=== PATIENT | male | born 1995 | race African-American/Black ===

== ENCOUNTER 2023-11-23 11:55 | Emergency (ER) | payer BC, SELFPAY ==
[2023-11-23] VITALS (9 sets, daily range): BP systolic 148–208; BP diastolic 99–133; PULSE 75–94; RESP 13–18; TEMP 36.4; O2SAT 98–100
--- NOTE | ~2023-11-23 | XR_ITS ---
EXAMINATION: XR chest 2V 11/23/2023 12:53 INDICATION: Right chest pain PROCEDURE: 2 view chest COMPARISON: No prior studies for comparison. FINDINGS: The lungs are clear. The cardiomediastinal silhouette is within normal limits. There are no pleural effusions. There is no pneumothorax suspected. IMPRESSION: 1: NO ACUTE CARDIOPULMONARY DISEASE. Reviewed, dictated and finalized at location B.
--- NOTE | 2023-11-23 12:01 | ECG_ITS ---
Test Date: 2023-11-23 12:06:05 Measurements Intervals [place] Rate: 78 P: 29 NH: 154 QRS: 47 QRSD: 94 T: 74 QT: 356 QTc: 407 Interpretive Statements SINUS RHYTHM ANTERIOR INFARCT, AGE INDETERMINATE CONSIDER INFERIOR INFARCT, AGE INDETERMINATE BORDERLINE T WAVE ABNORMALITY- HIGH LATERAL LEADS BASELINE WANDER- I, II, III ABNORMAL ECG No previous ECG available for comparison Electronically Signed On 11-23-2023 12:55:19 CDT by Eulalio Ward D.O.
[2023-11-23 12:17] LABS: Basophils Absolute Auto 0.1 K/mm3 (0.0-0.1); Basophils Percent Auto 0.6 % (0.2-1.2); Eosinophils Absolute Auto 0.2 K/mm3 (0-0.3); Hematocrit 47.3 % (42.0-52.0); Hemoglobin 16.8 g/dL (14.0-18.0); Immature Granulocyte Absolute 0.06 K/mm3 (0.00-0.031); Immature Granulocyte Percent A 0.6 % (0-0.5); Lymphocytes Absolute Auto 2.97 K/mm3 (0.9-3.2); Lymphocytes Percent Auto 27.2 % (18.3-44.2); Mean Corpuscular HGB Conc 35.5 g/dl (32-36); Mean Corpuscular Hemoglobin 31.5 pg (26-34); Mean Corpuscular Volume 88.6 fl (80-100); Mean Platelet Volume 9.2 fl (7.4-10.4); Monocytes Absolute Auto 1.2 K/mm3 (0.1-0.6); Monocytes Percent Auto 10.6 % (2.6-8.5); Neutrophils Absolute Auto 6.4 K/mm3 (1.3-6.7); Platelet Count Result 329 k/mm3 (150-375); Red Blood Count 5.34 M/mm3 (4.6-6.20); Red Cell Distribution Width 12.2 % (11.5-14.5); White Blood Count 10.9 K/mm3 (4.5-10.0)
[2023-11-23 12:27] LABS: Alanine Aminotransferase 53 U/L (6-50); Albumin Level 4.6 g/dL (3.5-5.1); Alkaline Phosphatase 83 U/L (38-126); Anion Gap 13 mmol/L (4-12); Aspartate Amino Transferase 47 U/L (17-59); Blood Urea Nitrogen 17 mg/dL (9-20); Calcium 8.9 mg/dL (8.4-10.2); Carbon Dioxide 26 mmol/L (22-30); Chloride 98 mmol/L (98-107); Estimated Glomerular Filt Rate > 60; Glucose 103 mg/dL (65-110); Lipase 92 U/L (23-300); Potassium 3.7 mmol/L (3.4-5.0); Sodium 137 mmol/L (137-145)
[2023-11-23 12:28] LABS: Prothrombin Time 13.7 Seconds (11.1-14.7)
[2023-11-23 12:29] LABS: Partial Thromboplastin Time 31.2 Seconds (22.3-36.8)
[2023-11-23 12:38] LABS: Troponin I < 0.012 ng/mL (0.000-0.034)
[2023-11-23] MEDS: ASPIRIN 81 MG CHEWABLE TABLET 324 MG PO (12:49)
--- NOTE | 2023-11-23 12:58 | ED.GENADULT ---
HPI - General Adult General Chief complaint: Recheck/Abnormal Lab/Rx Stated complaint: htn Time Seen by Provider: 11/23/23 12:43 History of Present Illness HPI narrative: 28-year-old male presenting to the emergency department for hypertension. Patient has probable undiagnosed hypertension. Patient had shoulder surgery approximately 2 months ago and during his preop he was noted to have high blood pressure. Patient does not have a current primary care physician but does have follow-up scheduled next Tuesday with a new primary care physician. Patient was at physical therapy today and prior to begin physical therapy he had his blood pressure checked and was noted to be hypertensive. Patient was advised to present to the emergency department for evaluation. Patient states he has had some intermittent right-sided chest pain that actually improved with exertion Related Data Allergies Allergy/AdvReac Type Severity Reaction Status Date / Time No Known Allergies Allergy Verified 11/23/23 13:07 Review of Systems Review of Systems: All systems reviewed & are unremarkable except as noted in HPI and below Exam Narrative: APPEARANCE: Well appearing, no pain, no distress, well-nourished. HEAD: normocephalic, atraumatic. EYES: PERRLA/EOMI, conjunctivae clear. NOSE: Normal no drainage EARS:TMS clear with good light reflex. THROAT: Pharynx clear, no exudate. NECK: Supple. No adenopathy, no masses. RESPIRATORY: Airway patent, respirations nonlabored. Clear to auscultation bilaterally, no rales, rhonchi, wheezing. CARDIOVASCULAR: Regular rate and rhythm without murmurs rubs or gallops. ABDOMINAL: Soft, nontender, nondistended, normal bowel sounds MUSCULOSKELETAL: Moves all extremities. Strength/ROM intact, No edema, No calf tenderness. NEURO: Alert. Cranial nerves II through XII intact. Good gait. Good coordination SKIN: Warm, dry. Normal Color Course Course Emergency Course: Patient was started on amlodipine Vital Signs Vital signs: Vital Signs Temperature 97.5 F L 11/23/23 11:57 Pulse Rate 93 11/23/23 11:57 Respiratory Rate 18 11/23/23 11:57 Blood Pressure 208/133 H 11/23/23 11:57 Pulse Oximetry 98 11/23/23 11:57 Oxygen Delivery Room Air 11/23/23 11:57 Temperature 97.5 F L 11/23/23 11:57 Pulse Rate 87 11/23/23 14:27 Respiratory Rate 14 11/23/23 14:27 Blood Pressure 159/117 H 11/23/23 14:27 Pulse Oximetry 100 11/23/23 14:27 Oxygen Delivery Room Air 11/23/23 11:57 Medical Decision Making MDM Narrative Medical decision making narrative: 28-year-old male presenting to the emergency department for evaluation for elevated blood pressure. Patient's initial blood pressure was 2 waited 133 but did rib prove with hydralazine. Patient has no evidence of end-organ injury. Patient is afebrile with a leukocytosis of 10.9 but a stable hemoglobin of 16.8. Patient has no significant abnormalities on his CMP and patient does have normal kidney function. Patient had negative troponin. Chest x-ray shows no acute cardiopulmonary abnormality. EKG shows normal sinus rhythm. Patient has not been on any medications for blood pressure previously. Patient does not have a current primary care physician but will have his 1st follow-up next Tuesday. I did discuss the case with Dr. Garber and he did recommend starting the patient on 5 mg daily amlodipine. Differential Diagnosis Differential Diagnosis: Hypertension, [place], pulmonary embolism, pneumothorax Vital Signs Vital Signs: Vital Signs Temperature 97.5 F L 11/23/23 11:57 Pulse Rate 93 11/23/23 11:57 Respiratory Rate 18 11/23/23 11:57 Blood Pressure 208/133 H 11/23/23 11:57 Pulse Oximetry 98 11/23/23 11:57 Oxygen Delivery Room Air 11/23/23 11:57 Temperature 97.5 F L 11/23/23 11:57 Pulse Rate 87 11/23/23 14:27 Respiratory Rate 14 11/23/23 14:27 Blood Pressure 159/117 H 11/23/23 14:27 Pulse Oximetry 100 11/23/23 14:27
[2023-11-23] MEDS: hydrALAZINE HCL 20 MG/ML VIAL 10 MG IV PUSH (13:08)
[2023-11-23] MEDS: amLODIPine BESYLATE 5 MG TABLET PO (14:26)
[2023-11-23 14:40] LABS: D Dimer 0.34 ug/mL (<0.48)
== END 2023-11-23 14:32 | disposition home or self-care (01) ==
PROVIDERS: Emergency Medicine; Emergency Provider Emergency Medicine
DX: I10 Essential (primary) hypertension (principal)
CPT/HCPCS: 36415; 71046; 80053; 83690; 84484; 85025; 85380; 85610; 85730; 93005; 96374; 99284; A9270; J0360